=== PATIENT | female | born 1950 | race Caucasian/White ===

== ENCOUNTER → 2018-12-24 | Outpatient (CLI) | payer OTHER, SELFPAY ==
[2018-12-24 15:24] VITALS: BMI 35.8
[2018-12-25 02:30] LABS: Absolute Lymphocyte Count 2.82 X10^3/ul (0.83-4.51); Absolute Neutrophil Count 5.6 X10^3/uL (2.0-7.7); Basophil# 0.02 X10^3/uL; Basophil% 0.2 % (0-1); Eosinophil# 0.18 X10^3/uL; Eosinophils% 1.9 % (0-5); Hematocrit 40.1 % (37-47); Hemoglobin 13.2 g/dl (12.0-15.0); Lymphocyte # 2.82 X10^3/ul (4.0); Lymphocyte % 30.1 % (19-41); Mean Corp Hgb Conc 32.9 g/gl (32-36); Mean Corpuscular Hgb 27.8 pg (27.0-32.0); Mean Corpuscular Volume 84.4 fL (81-99); Monocyte# 0.68 X10^3/uL; Monocyte% 7.3 % (0-10); Neutrophil # 5.64 X10^3/uL (2.7-7.7); Neutrophil % 60.3 % (47-70); Platelet Count 201 K/mm3 (150-450); RBC Distribution Width CV 13.8 % (11.6-14.6); RBC Distribution Width SD 43.1 fl (35.1-43.9); Red Blood Count 4.75 M/mm3 (4.2-5.4); White Blood Count 9.4 K/mm3 (4.4-11.0)
[2018-12-25 02:36] LABS: POSITIVE COUNT NO; POSITIVE DIFFERENTIAL NO; POSITIVE MORPHOLOGY NO
[2018-12-25 02:44] LABS: ALB/GLOB Ratio 1.2 RATIO (0.9-2.4); AST(SGOT) 35 U/L (15-37); Alanine Aminotransfer ALT/SGPT 47 U/L (13-56); Albumin, Serum 4.1 g/dL (3.2-5.0); Alkaline Phosphatase 102 U/L (45-117); Anion Gap 5 (5-15); BUN 25 mg/dL (7-18); BUN/Creat Ratio 24.3 RATIO (10-20); Calcium,Total 9.1 mg/dL (8.5-10.1); Chloride 107 mmol/L (98-107); Cholesterol 251 mg/dL (200); Creatinine, Serum 1.03 mg/dL (0.55-1.02); EST Glomerular Filtration Rate 57 mL/min (>60); Est Glom Filt Rate - Afr Amer 69 mL/min (>60); Globulin 3.4 g/dL (2.2-4.2); Glucose 88 mg/dL (74-106); High Density Lipoprotein 42 mg/dL; Protein, Total 7.5 g/dL (6.4-8.2); Sodium Level 138 mmol/L (136-145); Triglycerides 371 mg/dL; Very Low Density Lipoprotein 74 mg/dL (5-40)
== END | disposition home or self-care (01) ==
PROVIDERS: Family Provider Nurse Practitioner; PCP Nurse Practitioner; Referring Provider Nurse Practitioner; Visit Provider Nurse Practitioner
DX: I10 Essential (primary) hypertension (principal); E78.5 Hyperlipidemia, unspecified
CPT/HCPCS: 80053; 80061; 85025

== ENCOUNTER → 2018-12-25 | Outpatient (CLI) | payer OTHER, SELFPAY ==
[2018-12-24 15:24] VITALS: BMI 35.8
[2018-12-28 16:15] LABS: ANTINUCLEAR ANTIBODIES DIRECT Negative (Negative)
== END | disposition home or self-care (01) ==
PROVIDERS: Family Provider Nurse Practitioner; PCP Nurse Practitioner; Referring Provider Nurse Practitioner; Visit Provider Nurse Practitioner
DX: M79.644 Pain in right finger(s) (principal); M79.645 Pain in left finger(s)
CPT/HCPCS: 86038; 86225; 86235

== ENCOUNTER → 2019-08-24 07:47 | Outpatient (CLI) | payer MEDICARE, OTHER, SELFPAY ==
[2019-08-11 06:11] VITALS: BMI 37.8
--- NOTE | 2019-08-24 07:48 | ECHOD_ITS ---
Reason For Study: PHTN Procedure This was a 2D Doppler, Color Flow transthoracic echocardiogram. Contrast injection was performed. Exam performed in department. Left Ventricle Normal size and thickness. The estimated ejection fraction is 65 %. Stage 1 diastolic dysfunction. No regional wall motion abnormalities noted. Right Ventricle Moderately dilated right ventricle. Normal systolic function. Atria The left atrium is moderately enlarged. Normal right atrium. Normal atrial septum. Bubble contrast study negative for right to left interatrial shunt. Mitral Valve The mitral valve is structurally normal. No prolapse or stenosis seen. Mild (1+) mitral valve insufficiency. Tricuspid Valve Normal tricuspid valve. Trivial tricuspid valve insufficiency. Right ventricular systolic pressure estimated to be 26 mmHg. Aortic Valve Normal aortic valve. Trisinus/trileaflet aortic valve. Pulmonic Valve Normal pulmonic valve. Great Vessels Normal aortic root. Normal arch. Normal inferior vena cava. Inferior vena cava collapse with sniff. Pericardium/Pleural No pericardial effusion. Medication 22 gauge I.V. with prn adaptor inserted into right arm. Performed a rapid injection of agitated mix of 9 cc saline and 1cc air to assess for atrial septal defect. MMode/2D Measurements & Calculations LVIDd: 5.2 cm IVSd: 0.94 cm LA dimension: 3.8 cm LVIDs: 2.7 cm LVPWd: 1.2 cm RVDd: 4.0 cm FS: 47.5 % LAV(MOD-bp): 84.1 ml LA A4 area: 24.5 cm2 RA A4 area: 17.0 cm2 LAV(MOD-bp) Indexed: 44.0 ml/m2 LAV(MOD-sp2): 77.8 ml LAV(MOD-sp4): 85.5 ml Time Measurements MV dec time: 0.30 sec Doppler Measurements & Calculations MV E max jacques: 87.1 cm/sec Lat Peak E' Jacques: 5.9 cm/sec Med Peak E' Jacques: 5.8 cm/sec MV A max jacques: 111.2 cm/sec E/E' lat: 14.8 E/E' med: 15.0 MV E/A: 0.78 MV V2 max: 139.6 cm/sec MV P1/2t max jacques: 121.3 cm/sec Ao V2 max: 146.7 cm/sec MV max P.8 mmHg MV P1/2t: 82.4 msec Ao max P.6 mmHg MV V2 mean: 70.3 cm/sec MV dec slope: 431.1 cm/sec2 Ao V2 mean: 92.7 cm/sec MV mean P.4 mmHg Ao mean P.0 mmHg MV V2 VTI: 43.9 cm MVA(P1/2t): 2.7 cm2 Ao V2 VTI: 29.6 cm LV V1 max: 127.4 cm/sec MR max jacques: 519.4 cm/sec PA V2 max: 85.7 cm/sec LV V1 max P.5 mmHg MR max P.9 mmHg LV V1 mean P.3 mmHg LV V1 mean: 83.6 cm/sec LV V1 VTI: 29.0 cm TR max jacques: 231.1 cm/sec TR max P.4 mmHg Interpretation Summary The estimated ejection fraction is 65 %. Stage 1 diastolic dysfunction. Moderately dilated right ventricle. The left atrium is moderately enlarged. Bubble contrast study negative for right to left interatrial shunt. Mild (1+) mitral valve insufficiency. Trivial tricuspid valve insufficiency. Right ventricular systolic pressure estimated to be 26 mmHg. There is no comparison study available. Ordering Physician: Matt Grider Referring Physician: Cecilia Garza Performed By: Spencer Macias RCS
[2019-08-24 09:10] VITALS: PULSE 100; PULSE 61; PULSE 63; PULSE 82; PULSE 83; PULSE 90; PULSE 91; PULSE 96; O2SAT 94; O2SAT 95; O2SAT 96; O2SAT 97
--- NOTE | 2019-08-26 11:00 | WT_ITS ---
PSN 6 Minute Walk Test - 6 Minute Walk Test 6 Minute Walk Test: 6 Minute Walk Test PSN:6-Minute Walk Test Start: 08/24/19 09:10 Freq: Status: Active Protocol: [id number] Document 08/24/19 09:10 [facility] (Rec: 08/24/19 09:16 [facility] [id number]) 6 Minute Walk Test Date Performed 08/24/19 Time Performed 09:00 Height 5 ft 2 in Weight: 200 lb Weight in Pounds 200.[address]: Matt Grider Assistive device used: None Pre-test Oxygen Delivery Method Room Air Pulse Ox (%) 97 Pulse Rate (60-100 beats/min) 61 Dyspnea Priscila Scale (0-10) 0.5 Exertion Priscila Scale (6-20) 6 1st minute Oxygen Delivery Method Room Air Pulse Ox (%) 95 Pulse Rate (60-100 beats/min) 82 2nd minute Oxygen Delivery Method Room Air Pulse Ox (%) 95 Pulse Rate (60-100 beats/min) 83 3rd minute Oxygen Delivery Method Room Air Pulse Ox (%) 95 Pulse Rate (60-100 beats/min) 91 4th minute Oxygen Delivery Method Room Air Pulse Ox (%) 95 Pulse Rate (60-100 beats/min) 96 5th minute Oxygen Delivery Method Room Air Pulse Ox (%) 94 Pulse Rate (60-100 beats/min) 100 6th minute Oxygen Delivery Method Room Air Pulse Ox (%) 95 Pulse Rate (60-100 beats/min) 90 Dyspnea Priscila Scale (0-10) 1 Exertion Priscila Scale (6-20) 8 Post-test Oxygen Delivery Method Room Air Pulse Ox (%) 96 Pulse Rate (60-100 beats/min) 63 Full Laps Walked 18 Partial Lap, Number of Tiles Walked 0 Total Distance Walked (ft) 1062 - Interpretation Interpretation: The patient ambulated 1062 feet over the course of 6 minutes beginning on room air without assistive devices or breaks. Pretesting oxygen saturation was noted to be 97% on room air. With ambulation, the rodolfo oxygen saturation was 94%. There was no significant exertional oxygen desaturation. - Recommendations Recommendations: There is no indication for the use of supplemental oxygen at this time.
== END ==
PROVIDERS: PCP Nurse Practitioner; Referring Provider Internal Medicine Critical Care Medicine; Visit Provider Internal Medicine Critical Care Medicine
DX: R06.02 Shortness of breath (principal); G47.33 Obstructive sleep apnea (adult) (pediatric)
CPT/HCPCS: 93306; 94618; A4216

== ENCOUNTER → 2019-08-25 08:44 | Outpatient (CLI) | payer MEDICARE, OTHER, SELFPAY ==
[2019-08-11 06:11] VITALS: BMI 37.8
--- NOTE | 2019-08-26 11:09 | PFT ---
INTRODUCTION: The patient is a 69-year-old female that presents for pulmonary function studies secondary to a diagnosis of shortness of breath. Respiratory therapy reports good patient effort. Bronchodilators were used during testing. INTERPRETATION: Forced expiration spirometry demonstrates no evidence of a large airways obstructive ventilatory defect. There was no significant response to aerosolized bronchodilators, based upon strict ATS criteria. There is some subtle stigmata of potential small airways disease. Body plethysmography was performed and reveals an elevated RV to 142% of predicted. Diffusing capacity by single breath CO is within normal limits at 76% of predicted. IMPRESSION: Subtle stigmata of small airways disease with evidence of air trapping.
== END ==
PROVIDERS: PCP Nurse Practitioner; Referring Provider Internal Medicine Critical Care Medicine; Visit Provider Internal Medicine Critical Care Medicine
DX: R06.02 Shortness of breath (principal)
CPT/HCPCS: 94060; 94726; 94729

== ENCOUNTER → 2020-01-04 | Outpatient (CLI) | payer MEDICARE, OTHER, SELFPAY ==
[2020-01-04 15:26] VITALS: BMI 36.7
[2020-01-04 21:05] LABS: Absolute Lymphocyte Count 2.44 X10^3/uL (0.83-4.51); Absolute Neutrophil Count 4.5 X10^3/uL (2.0-7.7); Basophil# 0.05 X10^3/uL; Basophil% 0.6 % (0-1); Eosinophil# 0.25 X10^3/uL; Eosinophils% 3.2 % (0-5); Hematocrit 39.1 % (37-47); Hemoglobin 12.7 g/dL (12.0-15.0); Lymphocyte # 2.44 X10^3/ul (4.0); Lymphocyte % 31.1 % (19-41); Mean Corp Hgb Conc 32.5 g/dL (32-36); Mean Corpuscular Hgb 28.1 pg (27.0-32.0); Mean Corpuscular Volume 86.5 fL (81-99); Mean Platelet Vol. 10.1 fl (6.2-12.0); Monocyte# 0.56 X10^3/uL; Monocyte% 7.1 % (0-10); NRBC Flagged by Analyzer 0 % (0-5); Neutrophil # 4.52 X10^3/uL (2.7-7.7); Neutrophil % 57.6 % (47-70); Platelet Count 189 K/mm3 (150-450); RBC Distribution Width CV 13.4 % (11.6-14.6); RBC Distribution Width SD 42.1 fl (35.1-43.9); Red Blood Count 4.52 M/mm3 (4.2-5.4); White Blood Count 7.9 K/mm3 (4.4-11.0)
[2020-01-04 21:31] LABS: ALB/GLOB Ratio 1.1 RATIO (0.9-2.4); AST(SGOT) 26 U/L (15-37); Alanine Aminotransfer ALT/SGPT 45 U/L (13-56); Albumin, Serum 3.9 g/dL (3.2-5.0); Alkaline Phosphatase 81 U/L (45-117); Anion Gap 9 (5-15); BUN 19 mg/dL (7-18); BUN/Creat Ratio 20.4 RATIO (10-20); Calcium,Total 9.1 mg/dL (8.5-10.1); Chloride 108 mmol/L (98-107); Cholesterol 230 mg/dL (200); Creatinine, Serum 0.93 mg/dL (0.55-1.02); EST Glomerular Filtration Rate 63 mL/min (>60); Est Glom Filt Rate - Afr Amer 77 mL/min (>60); Globulin 3.5 g/dL (2.2-4.2); Glucose 87 mg/dL (74-106); High Density Lipoprotein 46 mg/dL; Potassium 3.6 mmol/L (3.5-5.1); Protein, Total 7.4 g/dL (6.4-8.2); Sodium Level 140 mmol/L (136-145); Triglycerides 310 mg/dL; Uric Acid 5.5 mg/dL (2.6-6.0); Very Low Density Lipoprotein 62 mg/dL (5-40)
[2020-01-06 21:14] LABS: ANTINUCLEAR ANTIBODIES DIRECT Negative (Negative)
== END | disposition home or self-care (01) ==
PROVIDERS: PCP Nurse Practitioner; Referring Provider Nurse Practitioner; Visit Provider Nurse Practitioner
DX: M25.541 Pain in joints of right hand (principal); M25.542 Pain in joints of left hand; J45.909 Unspecified asthma, uncomplicated; I10 Essential (primary) hypertension; E78.5 Hyperlipidemia, unspecified
CPT/HCPCS: 80053; 80061; 84550; 85025; 86038; 86225; 86235

== ENCOUNTER → 2020-05-15 10:04 | Outpatient (CLI) | payer MEDICARE, OTHER, SELFPAY ==
[2020-05-14 19:55] VITALS: BMI 34.5
== END ==
PROVIDERS: PCP Nurse Practitioner; Referring Provider Nurse Practitioner; Visit Provider Nurse Practitioner
DX: Z20.828 Contact with and (suspected) exposure to other viral communicable diseases (principal)
CPT/HCPCS: 87635; C9803; U0003

== ENCOUNTER → 2020-09-12 | Outpatient (CLI) | payer MEDICARE, OTHER, SELFPAY ==
[2020-09-10 16:50] VITALS: BMI 35.3
[2020-09-12 22:43] LABS: Basophil# 0.03 X10^3/uL; Basophil% 0.4 % (0-1); Eosinophil# 0.13 X10^3/uL; Eosinophils% 1.6 % (0-5); Hematocrit 39.8 % (37-47); Hemoglobin 12.8 g/dL (12.0-15.0); Lymphocyte % 15.7 % (19-41); Mean Corp Hgb Conc 32.2 g/dL (32-36); Mean Corpuscular Hgb 26.9 pg (27.0-32.0); Mean Corpuscular Volume 83.8 fL (81-99); Monocyte# 0.67 X10^3/uL; Monocyte% 8.1 % (0-10); NRBC Flagged by Analyzer 0 % (0-5); Neutrophil # 5.98 X10^3/uL (2.7-7.7); Platelet Count 350 K/mm3 (150-450); RBC Distribution Width CV 13.6 % (11.6-14.6); RBC Distribution Width SD 41.7 fl (35.1-43.9); Red Blood Count 4.75 M/mm3 (4.2-5.4); White Blood Count 8.3 K/mm3 (4.4-11.0)
[2020-09-12 22:49] LABS: ALB/GLOB Ratio 0.7 RATIO (0.9-2.4); AST(SGOT) 22 U/L (15-37); Alanine Aminotransfer ALT/SGPT 33 U/L (13-56); Albumin, Serum 2.8 g/dL (3.2-5.0); Alkaline Phosphatase 74 U/L (45-117); Anion Gap 7 (5-15); BUN 13 mg/dL (7-18); BUN/Creat Ratio 12.6 RATIO (10-20); Chloride 104 mmol/L (98-107); Creatinine, Serum 1.03 mg/dL (0.55-1.02); EST Glomerular Filtration Rate 56 mL/min (>60); Est Glom Filt Rate - Afr Amer 68 mL/min (>60); Globulin 4.2 g/dL (2.2-4.2); Glucose 122 mg/dL (74-106); Potassium 3.5 mmol/L (3.5-5.1); Sodium Level 138 mmol/L (136-145)
[2020-09-12 22:52] LABS: D-Dimer Quantitative (DVT/PE) 1.64 FEU/ug/m (0.27-0.49)
== END | disposition home or self-care (01) ==
PROVIDERS: PCP Nurse Practitioner; Visit Provider Nurse Practitioner
DX: I10 Essential (primary) hypertension (principal); R06.02 Shortness of breath; R09.02 Hypoxemia
CPT/HCPCS: 80053; 85025; 85379; 86141

== ENCOUNTER 2020-09-13 09:28 | Inpatient (IN) | payer MEDICARE, OTHER, SELFPAY ==
[2020-09-10 16:50] VITALS: BMI 35.3
[2020-09-13] VITALS (18 sets, daily range): BP systolic 156–235; BP diastolic 69–98; PULSE 62–86; RESP 16–19; TEMP 36.4–37.1; O2SAT 94–98; BMI 32.8; BMI 33.9
--- NOTE | 2020-09-13 09:53 | EKG12_ITS ---
Test Reason : Blood Pressure : / mmHG Vent. Rate : 067 BPM Atrial Rate : 067 BPM P-R Int : 136 ms QRS Dur : 082 ms QT Int : 402 ms P-R-T Axes : 045 -29 042 degrees QTc Int : 424 ms Normal sinus rhythm Septal infarct , age undetermined Abnormal ECG Confirmed by PADMINI WERNER, APOORVA ([id number]), web content editor WILLIAM DE LA TORRE ([id number]) on 09/17/2020 10:24:37 AM Referred By: JAMI Confirmed By:APOORVA WASHINGTON MD
--- NOTE | 2020-09-13 09:53 | CT_ITS ---
STUDY: CTA CHEST REASON FOR EXAM: Female, 70 years old. Pulmonary embolism RADIATION DOSAGE (If Supplied By Facility): CTDIvol = ( 12.45 ) mGy, DLP = ( 468.80 ) mGycm TECHNIQUE: The examination was performed with the intravenous administration of IV 100mL Isovue-370. Post-processing of the angiographic images was performed, with multiplanar reformation and 3D reconstruction. Individualized dose optimization techniques were used for this CT. COMPARISON: None. FINDINGS: Normal enhancement of the main pulmonary artery and right and left pulmonary arteries. Normal enhancement of the bilateral peripheral pulmonary arteries. There is no demonstrated pulmonary embolism. Normal thoracic aorta and visualized great vessels. There is no demonstrated aortic dissection. There are calcifications of the coronary arteries. Normal mediastinum. Normal hilar regions. Normal visualized trachea and bronchi. The lungs are well expanded. There is evidence of multiple areas of groundglass appearance involving both upper and lower lobes and the preferential peripheral distribution. This is worse in the lower lobes. Pneumonitis associated with the Covid 19 should be ruled out. Gross evidence of scarring at the lung bases. Normal pleura. Normal chest wall structures. There are degenerative changes of thoracic spine. Calcified splenic granulomas. CT/CTA Chest W/WO Contrast IMPRESSION: Multiple areas of groundglass appearance in both lungs superimposed on chronic basilar scarring. Findings are suggestive of pneumonitis associated with Covid19. Electronically Signed: Sanjeev Moran MD at 12:15 EDT , Service support ,
--- NOTE | 2020-09-13 09:57 | ED.VISSUMM ---
- ER Visit Summary Date of Service: 09/13/20 Chief Complaint: Shortness of breath, elevated D-dimer History of Present Illness: The patient is a 70 F who presents with shortness of breath that has been getting worse over the past 2 weeks. Patient states she was diagnosed with COVID-19 earlier this month. Patient states that she has been using her inhaler with minimal improvement. Patient states she feels like her breathing is labored. Patient denies any cough. Patient states she has been having fevers up to 101 at home but has been afebrile for the past couple days. Patient states she had a negative COVID-19 back in April but has had a positive COVID-19 test 2 weeks ago. Patient states her breathing is worse with any movement or exertion. Patient saw her primary care physician yesterday who did labs. The D-dimer was elevated and the patient was referred to the emergency department for further evaluation. Physical Examination: Vital signs are stable except for an elevated blood pressure of 180/93. Patient is afebrile. Patient is in no acute distress. Oral mucosa is pink and moist. Neck is supple. Trachea is midline. There is no JVD noted. Heart was regular rate and rhythm. Lungs are clear and equal bilaterally. Abdomen is soft. Bowel sounds are normal. There is no tenderness. There is no rebound or guarding noted. Skin is warm dry. Cranial nerves II through XII are intact. There are no focal motor or sensory deficits noted. Extremities are intact. There is no calf tenderness or edema. Test Results: EKG was obtained. On my interpretation, there is a normal sinus rhythm with a rate of 67. There are no acute ST or T wave changes. TX interval, QRS interval, and QTc interval were within normal limits. There is some left axis deviation. CBC was normal. Comprehensive metabolic profile showed a mild hypokalemia of 3.1. Troponin was normal. BNP was normal. Lactate was elevated at 3.3. Portable 1 view chest x-ray was obtained. On my interpretation, lung garcia showed mild congestive heart failure. There is normal cardiac silhouette. Bony thorax is normal. Radiologist also interpreted the x-ray and agrees. CTA of the chest was obtained. There is no evidence of pulmonary embolism or aortic dissection. There are multiple areas of groundglass appearance consistent with COVID-19. Because the COVID-19 antigen was negative and the patient is having symptoms of COVID-19, a COVID-19 PCR was ordered and is pending. Emergency Department Course and Treatment: She was given a dose of hydralazine here for her blood pressure. Patient was given a dose of Decadron here. Patient is still feeling weak on reevaluation. Patient was advised of her findings. Case was discussed with the hospitalist. He recommended giving the patient 1 L of normal saline. He will admit the patient to his service to the Covid unit. Patient and family understood and were agreeable with the plan. All questions were answered. Disposition: Admit to hospital Impression: 1. COVID-19 pneumonia 2. General weakness 3. Hypokalemia This note was generated with [employer] dictation software. It may contain incorrect words, spelling, and punctuation that were not noted in review of the chart prior to signing ED Disposition - Plan for ED Patient: Disposition: Acute Care Hospital [facility] Diagnosis: Pneumonia due to COVID-19 virus Referrals: Cecilia Garza COTTON MACHINE OPERATOR, COTTON MACHINE OPERATOR-C [Primary Care Provider] -
[2020-09-13] MEDS: hydrALAZINE 20 MG/ML Vial 5 MG IV (10:35)
[2020-09-13 10:36] LABS: Absolute Lymphocyte Count 0.94 X10^3/uL (0.83-4.51); Absolute Neutrophil Count 5.8 X10^3/uL (2.0-7.7); Basophil# 0.01 X10^3/uL; Basophil% 0.1 % (0-1); Eosinophil# 0.01 X10^3/uL; Eosinophils% 0.1 % (0-5); Hematocrit 40.2 % (37-47); Hemoglobin 12.9 g/dL (12.0-15.0); Lymphocyte # 0.94 X10^3/ul (4.0); Lymphocyte % 12.3 % (19-41); Mean Corp Hgb Conc 32.1 g/dL (32-36); Mean Corpuscular Hgb 26.5 pg (27.0-32.0); Mean Corpuscular Volume 82.7 fL (81-99); Mean Platelet Vol. 8.7 fl (6.2-12.0); Monocyte# 0.62 X10^3/uL; Monocyte% 8.1 % (0-10); NRBC Flagged by Analyzer 0 % (0-5); Neutrophil # 5.83 X10^3/uL (2.7-7.7); Neutrophil % 76.4 % (47-70); Platelet Count 355 K/mm3 (150-450); RBC Distribution Width CV 13.7 % (11.6-14.6); Red Blood Count 4.86 M/mm3 (4.2-5.4); White Blood Count 7.6 K/mm3 (4.4-11.0)
--- NOTE | 2020-09-13 10:55 | RAD_ITS ---
STUDY: X-RAY CHEST REASON FOR EXAM: Female, 70 years old. Cough TECHNIQUE: Single AP portable view of the chest. COMPARISON: None. FINDINGS: EKG electrodes are seen. There is evidence of vascular congestion with bibasilar atelectasis and/or infiltrates worse at the left lung base. There is no demonstrated pleural abnormality. Normal size heart. Normal mediastinum and lisa. Normal visualized pulmonary arteries. Normal visualized aortic arch and descending thoracic aorta. Normal visualized thoracic spine. There is degenerative osteoarthritis of the bilateral shoulders. There is no demonstrated abnormality of the visualized soft tissue structures of the upper abdomen. RAD/Chest 1 View (Portable) IMPRESSION: Mild degree of CHF with bibasilar atelectasis and/or infiltrates. Electronically Signed: Sanjeev Moran MD at 11:19 EDT , Service support ,
[2020-09-13 11:24] LABS: Lactic Acid 3.3 mmol/L (0.4-1.9)
[2020-09-13 11:39] LABS: ALB/GLOB Ratio 0.6 RATIO (0.9-2.4); AST(SGOT) 15 U/L (15-37); Alanine Aminotransfer ALT/SGPT 28 U/L (13-56); Albumin, Serum 2.6 g/dL (3.2-5.0); Alkaline Phosphatase 69 U/L (45-117); Anion Gap 8 (5-15); BUN 18 mg/dL (7-18); BUN/Creat Ratio 20.5 RATIO (10-20); Calcium,Total 8.5 mg/dL (8.5-10.1); Chloride 105 mmol/L (98-107); Creatinine, Serum 0.88 mg/dL (0.55-1.02); EST Glomerular Filtration Rate 68 mL/min (>60); Est Glom Filt Rate - Afr Amer 82 mL/min (>60); Estimated Creatinine Clearance 49.91 ml/min; Globulin 4.2 g/dL (2.2-4.2); Glucose 116 mg/dL (74-106); Potassium 3.1 mmol/L (3.5-5.1); Protein, Total 6.8 g/dL (6.4-8.2); Sodium Level 139 mmol/L (136-145)
[2020-09-13 12:35] LABS: BNP,B-Type NATRIURETIC PEPTIDE 61.5 pg/mL (0-100)
[2020-09-13 14:48] LABS: Reflex Lactate? Y
[2020-09-13] MEDS: dexAMETHasone 4 MG/ML Vial 6 MG IV (15:08)
[2020-09-13] MEDS: 0.9% Normal Saline 1,000 ML 999 ML IV (15:08)
[2020-09-13] MEDS: Potassium Chloride Oral Tablet 20 MEQ 40 MEQ PO ×2 (15:09→17:35)
--- NOTE | 2020-09-13 15:22 | HP.PCM_ITS ---
Problem List (1) Pneumonia due to COVID-19 virus Status: Acute (2) Hypoxemia Status: Acute (3) DIABETES TYPE 2 Status: Chronic (4) IBS (irritable bowel syndrome) Status: Chronic (5) Hypertension Status: Chronic Qualifiers: (6) GERD (gastroesophageal reflux disease) Status: Chronic (7) Hyperlipemia Status: Chronic Qualifiers: History of Present Illness Date of Admission: 09/13/20 Chief Complaint: Shortness of breath, weakness, elevated D-dimer. The patient is a 70 year old F with past medical history as mentioned above presented to the emergency room because of shortness of breath, weakness and elevated D-dimer. Patient tested positive for COVID-19 on August 27, 2020. Since that time, she has been having symptoms of progressively slowly increasing sh ortness of breath, first was on moderate exertion and then even at rest, associated with dry cough as well as profound weakness and also reported distorted smell and nausea. She reported associated fever at home as well. She saw her PCP yesterday, had blood work done and she was found to have elevated D- dimer and she was referred to the ED today for evaluation. In the emergency department, her blood pressure was elevated, was afebrile, not tachycardic, not tachypneic and pulse ox was 96% on 2 L. Her routine blood work was remarkable for mild hypokalemia, otherwise normal. LFT was unremarkable. Lactic acid was 3.3. EKG revealed normal sinus rhythm without evidence of acute ischemic changes or cardiac arrhythmias. Troponin was negative. Chest x-ray showed bilateral basilar infiltrate, no CHF. CTA chest done and showed no PE or dissection, revealed multiple areas of groundglass appearance of both lungs. She is being admitted for acute bilateral COVID-19 pneumonia with hypoxia and she was found to have lactic acidosis without evidence of sepsis or severe sepsis. Past Medical History Past Medical History (Chronic Problems): Chronic Problems (Last Updated 09/13/20 @ 15:[address] John Back MD) Asthma (Chronic) DIABETES TYPE 2 (Chronic) IBS (irritable bowel syndrome) (Chronic) Sleep apnea (Chronic) Hypertension (Chronic) GERD (gastroesophageal reflux disease) (Chronic) Hyperlipemia (Chronic) Medical History: Medical History (Last Updated 09/13/20 @ 15:[address] John Back MD) DIABETES TYPE 2 (Chronic) IBS (irritable bowel syndrome) (Chronic) K58.9 Sleep apnea (Chronic) G47.30 Loose total arthroplasty of both knees (Inactive) T84.032A, T84.033A Spinal stenosis (Inactive) M48.00 Allergies gemfibrozil Allergy (Severe, Verified 09/13/20 09:29) vomiting and diarrhea amoxicillin Allergy (Verified 09/13/20 09:29) rash donepezil Adverse Reaction (Severe, Verified 09/13/20 09:29) dizzy Home Medications: Ambulatory Orders Medication Instructions Recorded albuterol sulfate 2.5 mg INHALATION Q4H PRN #90 ml 09/20/19 albuterol sulfate 90 mcg/actuation 2 puff INHALATION Q4H PRN #18 g 07/19/20 aerosol inhaler promethazine 12.5 mg tablet 12.5 mg PO Q4H PRN #45 tab 09/11/20 budesonide 160 mcg-glycopyr 9 2 inh INHALATION BID 09/12/20 mcg-formot 4.8 mcg/actuation HFA inhaler Ascorbic Acid [C-1000] 1,000 mg PO DAILY 09/13/20 Fluvoxamine Maleate 50 mg PO BID 09/13/20 Meloxicam 15 mg PO QDAY 09/13/20 Metformin HCl [Glucophage] 500 mg PO DAILY 09/13/20 Omeprazole 40 mg PO DAILY 09/13/20 Zinc Gluconate [Zinc] 50 mg PO DAILY 09/13/20 Surgical History: Surgical History (Last Updated 09/13/20 @ 15:[address] John Back MD) H/O tubal ligation (Inactive) Z98.51 History of bunionectomy of both great toes (Inactive) Z98.890 Surgical History: total knee arthroplasty, - - Laminectomy. 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 Denies: Chills Eyes: Denies: Blurred vision, Double vision, Drainage, Redness HEENT: Reports: Sinus Congestion. Denies: Difficulty Hearing, Dysphasia, Ear Pain, Eye Pain, Nasal Congestion, Sore Throat Cardiovascular: Denies: Chest Pain, Chest Pressure, Chest Tightness, Heaviness, Light Headedness, Palpitations, Syncope Respiratory: Reports: Cough, Shortness of Breath. Denies: Sputum production, Wheezing Gastrointestinal: Reports: Nausea. Denies: Abdominal Pain, Constipation, Diarrhea, Vomiting Genitourinary: Denies: Dysuria, Frequency, Hematuria Musculoskeletal: Denies: Arm Pain, Back Pain, Foot Pain Skin: Denies: Dryness, Rash Neurological: Denies: Balance problems, Double vision, Change in Speech, Slurred speech, Confusion, Headaches, Incoordination Psychiatric: Denies: Anxiety, Depression Endocrine: Denies: Change in Body Habitus, Polydipsia, Polyuria VTE Information - Inpt Only VTE Present on Admission: No VTE Mechan Device Prophylaxis: None VTE Pharm Prophylaxis ordered?: Yes Patient Problems: Active and Suspected Problems (Last Updated 09/13/20 @ 15:[address] John Back MD) Pneumonia due to COVID-19 virus (Acute) Hypoxemia (Acute) - Physical Exam Vitals/I&O's: Vital Signs Temp Pulse Resp BP Pulse Ox 98.4 F 73 19 H 176/87 H 94 09/13/20 15:00 09/13/20 15:00 09/13/20 15:00 09/13/20 15:00 09/13/20 15:00 Oxygen Flow Rate (L/min) 2 Oxygen Delivery Method Nasal Cannula Weight: 185 lb Body Mass Index (BMI) 32.8 General: Alert, Oriented x3, Cooperative, - - Minimally short of breath. HEENT: Atraumatic, PERRLA, EOMI, Normocephalic Oral: Moist Mucosa, No Gingival or Mucosal Lesions/ Ulcerations Neck: Supple, No JVD, Negative Carotid Bruits, Trachea Midline, Thyroid Normal Size and Texture Lungs: Clear to auscultation, No rhonchi, No wheeze, No rales, Diminished Cardiovascular: Regular rate, Regular Rhythm, Normal S1, Normal S2, PMI Normal Abdomen: Bowel Sounds Present, Soft, Non Tender, Non-Distended, No Hepato- splenomegaly, Obese Extremities: No clubbing, No cyanosis, No edema Skin: No rashes, No breakdown Lymphatic: No Cervical, Supraclavicular, or Inguinal Adenopathy Neurological: Cranial nerves II-XII grossly intact, Motor Exam 5/5 strength throughout Psych/Mental Status: Normal Affect, Appropriate, Alert and oriented to time, place, person, mood and affect Microbiology Past 72 Hours 09/13/20 10:10 Mucosa - Nose SARS-CoV-2 Antigen (Rapid) - Final Laboratory Results 09/13/20 10:10: Sodium Cancelled, Potassium Cancelled, Chloride Cancelled, Carbon Dioxide Cancelled, Anion Gap Cancelled, BUN Cancelled, Creatinine Cancelled, Estim Creat Clear Calc Cancelled, Est GFR (MDRD) Af Amer Cancelled, Est GFR (MDRD) Non-Af Cancelled, BUN/Creatinine Ratio Cancelled, Glucose Cancelled, Calcium Cancelled, Total Bilirubin Cancelled, AST Cancelled, ALT Cancelled, Alkaline Phosphatase Cancelled, Troponin I Cancelled, Total Protein Cancelled, Albumin Cancelled, Globulin Cancelled, Albumin/Globulin Ratio Cancelled 09/13/20 10:10: WBC 7.6, RBC 4.86, Hgb 12.9, Hct 40.2, MCV 82.7, MCH 26.5 L, MCHC 32.1, RDW Std Deviation 41.0, RDW Coeff of Panda 13.7, Plt Count 355, MPV 8.7, Immature Gran % (Auto) 3.000 H, Neut % (Auto) 76.4 H, Lymph % (Auto) 12.3 L , [place] % (Auto) 8.1, Eos % (Auto) 0.1, Baso % (Auto) 0.1, Absolute Neuts (auto) 5.8, Absolute Lymphs (auto) 0.94, Nucleated RBC % 0 09/13/20 10:10: Lactic Acid Cancelled 09/13/20 10:10: B-Natriuretic Peptide 61.5 09/13/20 10:44: Lactic Acid 3.3 H* 09/13/20 11:16: Sodium 139, Potassium 3.1 L, Chloride 105, Carbon Dioxide 26.0, Anion Gap 8, BUN 18, Creatinine 0.88, Estim Creat Clear Calc 49.91, Est GFR (MDRD) Af Amer 82, Est GFR (MDRD) Non-Af 68, BUN/Creatinine Ratio 20.5 H, Glucose 116 H, Calcium 8.5, Total Bilirubin 0.30, AST 15, ALT 28, Alkaline Phosphatase 69, Troponin I 0.037, Total Protein 6.8, Albumin 2.6 L, Globulin 4.2, Albumin/Globulin Ratio 0.6 L 09/13/20 13:05: COVID-19 ([place]) Pending Clinical Impression(s) from Imaging Studies Chest CTA 09/13/20 09:53 IMPRESSION: Multiple areas of groundglass appearance in both lungs superimposed on chronic basilar scarring. Findings are suggestive of pneumonitis associated with Covid19. Electronically Signed: Sanjeev Moran MD at 12:15 EDT , Service support , Chest X-Ray 09/13/20 10:55 IMPRESSION: Mild degree of CHF with bibasilar atelectasis and/or infiltrates. Electronically Signed: Sanjeev Moran MD at 11:19 EDT , Service support , Current Medications Sodium Chloride () 1,000 mls @ 999 mls/hr IV .Q1H1M ONE Stop: 09/13/20 15:47 Last Admin: 09/13/20 15:08 Dose: 999 mls/hr Documented by: Iopamidol (Contrast Allergy Safety Check) 0 ml IV X1 ESTRADA Last Admin: 09/13/20 11:21 Dose: Not Given Documented by: Assessment/Plan All Active Problems (Last Updated 09/13/20 @ 15:[address] John Back MD) Pneumonia due to COVID-19 virus (Acute) Hypoxemia (Acute) This is a 70 years old female patient presented to the emergency room because of shortness of breath, weakness and elevated D-dimer, she was tested positive for COVID-19 on August 27, 2020, found to have bilateral groundglass opacities on CTA chest consistent with bilateral COVID-19 pneumonia with hypoxia and also found to have lactic acidosis. #1 acute bilateral COVID-19 pneumonia/hypoxia: Patient tested positive for COVID-19 on August 27, 2020. Today, COVID-19 antigen is negative. COVID-19 PCR is pending. Chest x-ray and CTA chest reviewed. EKG was unremarkable. Troponin and BNP was unremarkable. Plan: Admit to [facility] COVID19 floor, isolation precautions, start p.o. Decadron, IV in the severe, continue Pulmicort twice daily, albuterol inhaler, infectious disease consult, subcu Lovenox twice daily, repeat CBC and CMP tomorrow morning, check pro time and INR, PT OT evaluation and treatment. #2 lactic acidosis: This is probably because of hypoxemia. No evidence of sepsis or severe sepsis. Patient was afebrile, not tachycardic, not tachypneic and she had no leukocytosis. Plan: Blood culture, gentle IV fluids for hydration, repeat lactic acid in 3 hours. #3 type 2 diabetes mellitus: ADA diet, Accu-Cheks, insulin sliding scale, hold Metformin for now. #4 GERD: Continue PPI. #5 asthma/COPD: Currently, she is on oxygen at 2 L. Plan for Pulmicort twice daily, albuterol inhaler as needed, incentive spirometer. #6 CODE STATUS: Full code. #7 DVT prophylaxis: Subcu Lovenox twice daily. This note was generated with [employer] dictation software. It may contain incorrect words, spelling, and punctuation that were not noted in checking the note before signing. Inpatient E&M: [id number] Init Hosp L3
--- NOTE | 2020-09-13 15:27 | ED.RN ---
called patients spouse and updated him on patients admission and room number.
[2020-09-13 17:01] LABS: Prothrombin Time (Protime)PT. 12.9 SECONDS (11.7-14.9)
[2020-09-13] MEDS: hydrALAZINE 20 MG/ML Vial 10 MG IV (17:34)
[2020-09-13] MEDS: 0.9% Saline Lock 10 ML Syringe IV ×2 (17:34→20:09)
[2020-09-13 17:57] LABS: Lactic Acid 2.8 mmol/L (0.4-1.9)
[2020-09-13] MEDS: cloNIDine HCl 0.1 MG Tablet PO (20:03)
[2020-09-13] MEDS: CLARIFY ORDER NOTE (20:03)
[2020-09-13 20:36] LABS: Bedside Glucose 141 mg/dL (70-110)
[2020-09-13] MEDS: fluvoxaMINE Maleate 50 MG Tablet PO (22:18)
[2020-09-13] MEDS: Enoxaparin 30 MG/0.3 ML Syringe SC (22:18)
[2020-09-13 22:46] LABS: Bedside Glucose 157 mg/dL (70-110)
--- NOTE | 2020-09-13 23:45 | NURSING ---
At HS, pt informed that fingerstick blood sugar was just high enough to get her 1 unit of insulin for sliding scale. Pt adamantly refused, stating I watched my dad get insulin and it just tore him up. When asked to explain what she meant by tore him up pt simply responded with, I'm not taking insulin.
[2020-09-14] VITALS (13 sets, daily range): BP systolic 136–165; BP diastolic 61–87; PULSE 55–69; RESP 15–19; TEMP 36.6–36.9; O2SAT 94–96
[2020-09-14 06:09] LABS: Absolute Lymphocyte Count 1.11 X10^3/uL (0.83-4.51); Absolute Neutrophil Count 6.2 X10^3/uL (2.0-7.7); Basophil# 0.02 X10^3/uL; Basophil% 0.2 % (0-1); Eosinophil# 0.02 X10^3/uL; Eosinophils% 0.2 % (0-5); Hemoglobin 12.2 g/dL (12.0-15.0); Lymphocyte # 1.11 X10^3/ul (4.0); Lymphocyte % 13.7 % (19-41); Mean Corpuscular Hgb 27.3 pg (27.0-32.0); Mean Corpuscular Volume 82.8 fL (81-99); Mean Platelet Vol. 8.6 fl (6.2-12.0); Monocyte# 0.61 X10^3/uL; Monocyte% 7.5 % (0-10); NRBC Flagged by Analyzer 0 % (0-5); Neutrophil % 76.4 % (47-70); Platelet Count 297 K/mm3 (150-450); RBC Distribution Width CV 13.8 % (11.6-14.6); RBC Distribution Width SD 41.3 fl (35.1-43.9); Red Blood Count 4.47 M/mm3 (4.2-5.4); White Blood Count 8.1 K/mm3 (4.4-11.0)
[2020-09-14 06:26] LABS: ALB/GLOB Ratio 0.7 RATIO (0.9-2.4); AST(SGOT) 15 U/L (15-37); Alanine Aminotransfer ALT/SGPT 29 U/L (13-56); Albumin, Serum 2.6 g/dL (3.2-5.0); Alkaline Phosphatase 64 U/L (45-117); Anion Gap 8 (5-15); BUN 19 mg/dL (7-18); BUN/Creat Ratio 23.9 RATIO (10-20); Calcium,Total 8.5 mg/dL (8.5-10.1); Chloride 107 mmol/L (98-107); Creatinine, Serum 0.79 mg/dL (0.55-1.02); EST Glomerular Filtration Rate 76 mL/min (>60); Est Glom Filt Rate - Afr Amer 92 mL/min (>60); Estimated Creatinine Clearance 43.92 ml/min; Globulin 3.9 g/dL (2.2-4.2); Glucose 131 mg/dL (74-106); Potassium 4.1 mmol/L (3.5-5.1); Protein, Total 6.5 g/dL (6.4-8.2); Sodium Level 140 mmol/L (136-145)
[2020-09-14] MEDS: Meloxicam 15 MG Tablet PO (08:41)
[2020-09-14] MEDS: dexAMETHasone 4 MG Tablet 6 MG PO (08:41)
[2020-09-14] MEDS: Lisinopril 20 MG Tablet PO ×2 (08:41→08:42)
[2020-09-14] MEDS: fluvoxaMINE Maleate 50 MG Tablet PO ×2 (08:42→20:55)
[2020-09-14] MEDS: Pantoprazole Sodium 40 MG Tablet PO (08:42)
[2020-09-14] MEDS: Enoxaparin 30 MG/0.3 ML Syringe SC ×2 (08:42→20:55)
--- NOTE | 2020-09-14 09:30 | PN_ITS ---
Patient Problems: Active and Suspected Problems (Last Updated 09/13/20 @ 15:[address] John Back MD) Pneumonia due to COVID-19 virus (Acute) Hypoxemia (Acute) Subjective: Chief complaint: Follow-up after admission for acute bilateral COVID-19 pneumonia, hypoxia and newly diagnosed hypertension. Patient seen and examined. No acute events overnight. Today, she is feeling better, shortness of breath improved, has been on room air. Overnight, blood pressure was high elevated, she received IV Thorazine. She was started on Norvasc and lisinopril. This morning, she is afebrile, blood pressure still on the higher side but improved, pulse ox is 94% on room air. - Physical Exam Vitals/I&O's: Vital Signs Temp Pulse Resp BP Pulse Ox 97.9 F 60 15 165/87 H 94 09/14/20 08:45 09/14/20 08:45 09/14/20 08:45 09/14/20 08:45 09/14/20 08:45 Oxygen Flow Rate (L/min) 2 Oxygen Delivery Method Room Air Weight: 191 lb 5.78 oz Body Mass Index (BMI) 33.9 Intake and Output for Last 24 Hours 09/12/20 09/13/20 09/14/20 23:59 23:59 23:59 Intake Total 1750 / 1750 Balance 1750 / 1750 General: Alert, Oriented x3, Cooperative, No apparent distress HEENT: Atraumatic, PERRLA, EOMI, Normocephalic Oral: Moist Mucosa, No Gingival or Mucosal Lesions/ Ulcerations Neck: Supple, No JVD, Negative Carotid Bruits, Trachea Midline, Thyroid Normal Size and Texture Lungs: Clear to auscultation, No rhonchi, No wheeze, No rales, Diminished Cardiovascular: Regular rate, Regular Rhythm, Normal S1, Normal S2, PMI Normal Abdomen: Bowel Sounds Present, Soft, Non Tender, Non-Distended, No Hepato- splenomegaly Extremities: No clubbing, No cyanosis, No edema Skin: No rashes, No breakdown Lymphatic: No Cervical, Supraclavicular, or Inguinal Adenopathy Neurological: Cranial nerves II-XII grossly intact, Neuro grossly intact Psych/Mental Status: Normal Affect, Appropriate, Alert and oriented to time, place, person, mood and affect Microbiology Past 72 Hours 09/13/20 10:10 Mucosa - Nose SARS-CoV-2 Antigen (Rapid) - Final Laboratory Results 09/13/20 10:10: Sodium Cancelled, Potassium Cancelled, Chloride Cancelled, Carbon Dioxide Cancelled, Anion Gap Cancelled, BUN Cancelled, Creatinine Cancelled, Estim Creat Clear Calc Cancelled, Est GFR (MDRD) Af Amer Cancelled, Est GFR (MDRD) Non-Af Cancelled, BUN/Creatinine Ratio Cancelled, Glucose Cancelled, Calcium Cancelled, Total Bilirubin Cancelled, AST Cancelled, ALT Cancelled, Alkaline Phosphatase Cancelled, Troponin I Cancelled, Total Protein Cancelled, Albumin Cancelled, Globulin Cancelled, Albumin/Globulin Ratio Cancelled 09/13/20 10:10: WBC 7.6, RBC 4.86, Hgb 12.9, Hct 40.2, MCV 82.7, MCH 26.5 L, MCHC 32.1, RDW Std Deviation 41.0, RDW Coeff of Panda 13.7, Plt Count 355, MPV 8.7, Immature Gran % (Auto) 3.000 H, Neut % (Auto) 76.4 H, Lymph % (Auto) 12.3 L , [place] % (Auto) 8.1, Eos % (Auto) 0.1, Baso % (Auto) 0.1, Absolute Neuts (auto) 5.8, Absolute Lymphs (auto) 0.94, Nucleated RBC % 0 09/13/20 10:10: Lactic Acid Cancelled 09/13/20 10:10: B-Natriuretic Peptide 61.5 09/13/20 10:10: PT 12.9, INR 1.0 09/13/20 10:44: Lactic Acid 3.3 H* 09/13/20 11:16: Sodium 139, Potassium 3.1 L, Chloride 105, Carbon Dioxide 26.0, Anion Gap 8, BUN 18, Creatinine 0.88, Estim Creat Clear Calc 49.91, Est GFR (MDRD) Af Amer 82, Est GFR (MDRD) Non-Af 68, BUN/Creatinine Ratio 20.5 H, Glucose 116 H, Calcium 8.5, Total Bilirubin 0.30, AST 15, ALT 28, Alkaline Phosphatase 69, Troponin I 0.037, Total Protein 6.8, Albumin 2.6 L, Globulin 4.2, Albumin/Globulin Ratio 0.6 L 09/13/20 13:05: COVID-19 ([facility]) Positive 09/13/20 17:10: Lactic Acid 2.8 H* 09/13/20 17:29: POC Glucose 141 H 09/13/20 22:17: POC Glucose 157 H 09/14/20 06:00: WBC 8.1, RBC 4.47, Hgb 12.2, Hct 37.0, MCV 82.8, MCH 27.3, MCHC 33.0, RDW Std Deviation 41.3, RDW Coeff of Panda 13.8, Plt Count 297, MPV 8.6, Immature Gran % (Auto) 2.000 H, Neut % (Auto) 76.4 H, Lymph % (Auto) 13.7 L, [place] % (Auto) 7.5, Eos % (Auto) 0.2, Baso % (Auto) 0.2, Absolute Neuts (auto) 6.2, Absolute Lymphs (auto) 1.11, Nucleated RBC % 0 09/14/20 06:00: Sodium 140, Potassium 4.1, Chloride 107, Carbon Dioxide 25.0, Anion Gap 8, BUN 19 H, Creatinine 0.79, Estim Creat Clear Calc 43.92, Est GFR (MDRD) Af Amer 92, Est GFR (MDRD) Non-Af 76, BUN/Creatinine Ratio 23.9 H, Glucose 131 H, Calcium 8.5, Total Bilirubin 0.30, AST 15, ALT 29, Alkaline Phosphatase 64, Total Protein 6.5, Albumin 2.6 L, Globulin 3.9, Albumin/Globulin Ratio 0.7 L Current Medications Acetaminophen (Acetaminophen 325 Mg Tablet) 650 mg PO Q6H PRN PRN PRN Reason: Pain Score 1-10/Temp > 100.7 F Albuterol Sulfate (Albuterol Ih 8.5 Gm (Proair) Inhaler (200 Puffs)) 2 puff INHALATION Q4H PRN PRN PRN Reason: Shortness of breath, wheezing Amlodipine Besylate (Amlodipine 10 Mg Tablet) 10 mg PO DAILY [facility] Dexamethasone (Dexamethasone 4 Mg Tablet) 6 mg PO DAILY@0800 [facility] Last Admin: 09/14/20 08:41 Dose: 6 mg Documented by: Enoxaparin Sodium (Enoxaparin 30 Mg/0.3 Ml Syringe) 30 mg SC BID [facility] Last Admin: 09/14/20 08:42 Dose: 30 mg Documented by: Fluvoxamine Maleate (Fluvoxamine Maleate 50 Mg Tablet) 50 mg PO BID [facility] Last Admin: 09/14/20 08:42 Dose: 50 mg Documented by: Hydralazine HCl (Hydralazine 20 Mg/Ml Vial) 10 mg IV Q6H PRN PRN PRN Reason: for SBP>160 Last Admin: 09/13/20 17:34 Dose: 10 mg Documented by: Remdesivir 100 mg/ Sodium (Chloride) 250 mls @ 125 mls/hr IV DAILY [facility] Stop: 09/17/20 11:59 Sodium Chloride () 250 mls @ 15 mls/hr IV .[id number] PRN PRN Reason: Saline Flush Last Admin: 09/14/20 09:23 Dose: 15 mls/hr Documented by: Sodium Chloride () 250 mls @ 15 mls/hr IV .[id number] PRN PRN Reason: Additional IVPB Infusion Insulin Human Lispro (Insulin Lispro 100 Unit/Ml Insuln.Pen) 0 unit SC ACHS [facility]; Protocol Last Admin: 09/14/20 08:42 Dose: Not Given Documented by: Lisinopril (Lisinopril 20 Mg Tablet) 20 mg PO DAILY [facility] Last Admin: 09/14/20 08:42 Dose: 20 mg Documented by: Meloxicam (Meloxicam 15 Mg Tablet) 15 mg PO DAILY [facility] Last Admin: 09/14/20 08:41 Dose: 15 mg Documented by: Non-Formulary Medication (Budesonide/Glycopyr/Formoterol [Breztri Aerosphere Inhaler]) 2 inh INHALATION BID [facility] Last Admin: 09/14/20 08:42 Dose: 2 inh Documented by: Ondansetron HCl (Ondansetron 4 Mg/2 Ml Vial) 4 mg IV Q8H PRN PRN PRN Reason: NAUSEA/VOMITING Pantoprazole Sodium (Pantoprazole Sodium 40 Mg Tablet) 40 mg PO DAILY [facility] Last Admin: 09/14/20 08:42 Dose: 40 mg Documented by: Senna/Docusate Sodium (Senna/Docusate Sodium 1 Tablet) 2 tablet PO BID PRN PRN PRN Reason: Constipation Sodium Chloride (0.9% Saline Lock 10 Ml Syringe) 10 - 40 ml IV UD PRN PRN Reason: SALINE FLUSH Last Admin: 09/13/20 20:09 Dose: 10 ml Documented by: Zolpidem Tartrate (Zolpidem Tartrate 5 Mg Tablet) 5 mg PO QHS PRN PRN PRN Reason: INSOMNIA Medical Necessity - Tobacco Use Smoking Status: Former smoker Assessment/Plan All Active Problems (Last Updated 09/13/20 @ 15:[address] John Back MD) Pneumonia due to COVID-19 virus (Acute) Hypoxemia (Acute) This is a 70 years old female patient presented to the emergency room because of shortness of breath, weakness and elevated D-dimer, she was tested positive for COVID-19 on August 27, 2020, found to have bilateral groundglass opacities on CTA chest consistent with bilateral COVID-19 pneumonia with hypoxia and also found to have lactic acidosis. #1 acute bilateral COVID-19 pneumonia/hypoxia: She is on p.o. Decadron and IV remdesivir as well as subcu Lovenox twice daily. COVID-19 antigen was negative but COVID-19 PCR was positive. Currently, she is on room air, symptoms impro yovani, other vital signs are stable except blood pressure. Chest x-ray and CTA chest reviewed. EKG was unremarkable. Troponin and BNP was unremarkable. Infectious disease consulted. Plan to continue same treatment, awaiting infectious disease recommendations. #2 lactic acidosis: This is probably because of hypoxemia. No evidence of sepsis or severe sepsis. Patient was afebrile, not tachycardic, not tachypneic and she had no leukocytosis. Lactic acid improved with IV fluids. Blood cultures pending. #3 type 2 diabetes mellitus: Blood sugar stable, continue ADA diet, Accu-Cheks, insulin sliding scale, keep holding Metformin. #4 GERD: Continue PPI. #5 asthma/COPD: This morning, she is on room air. Continue Pulmicort twice daily, albuterol inhaler as needed, incentive spirometer. #6 CODE STATUS: Full code. #7 DVT prophylaxis: Subcu Lovenox twice daily. This note was generated with [employer] dictation software. It may contain incorrect words, spelling, and punctuation that were not noted in checking the note before signing. Inpatient E&M: 32076 Subs Hosp L2
[2020-09-14] MEDS: amLODIPine 10 MG Tablet PO (10:40)
[2020-09-14] MEDS: 0.9% Saline Lock 10 ML Syringe IV (10:40)
[2020-09-14 11:00] LABS: Bedside Glucose 113 mg/dL (70-110)
--- NOTE | 2020-09-14 11:55 | CASEMGMT ---
MILLER SPANN Assessment: TC to pt for initial transition planning/care coordination assessment due to isolation. RN MARIA INES introduced self and role at [facility], pt voices understanding and consents to assessment. Pt is A/O x4 and answers all questions appropriately at this time. Care providers, pharmacy, and demographics verified/updated. Admitting Dx: acute bilat COVID-19 pneumonia, hypoxia PCP: Cecilia Garza, [employer] Specialists: Dr. Grider, pulm; Dr. French, hand surgeon at [facility] Preferred Pharmacy: [facility] Pres[facility] Benefit: yes, [facility] [employer] Rx LW/HPOA: Pt reports having a LW and states her HPOA is her Indra. LNOK: Indra Living Arrangements: Pt lives in a single story house with 2 steps to enter. Has ramp in garage. Pt reports I in ADL's and states no concerns at home. Transportation: Pt drives self and no concerns with transportation. DME/HHC/SNF: Pt just received O2 on Thursday at home through [facility] in [place]. States she also has a CPAP at home. Pt denies need for further DME. Pt states she has had HHC previously when her knees were replaced but unsure of agency name. Denies being in a SNF. Pt states no concerns with going home at time of dc. Pt states no further concerns/needs. CM to follow. Advised pt to ask CM if any further question/concerns/needs arise, voices understanding. Pt Goal: Home Plan: Home with family support
--- NOTE | 2020-09-14 12:54 | PCM.HP.ID ---
Problem List (1) Pneumonia due to COVID-19 virus Status: Acute Reason for Consult: covid Consulted by: Dr. Back History of Present Illness: The patient is a 70 year old F presented with symptoms since 08/27/20. got sick at the same time. Neither had covid vaccine. No known sick contacts. Pt c/o fever, chills, fatigue, headache, loss of taste and smell, aches, nausea, loss of appetite. was admitted to [place] and got 5 days of remdesivir, now home. She reports fever resolved a week ago, complaint now is mainly fatigue, weakness. Admitted here 09/13, started on remdesivir and dex. Full ROS performed and neg except as noted above. - Medical History Past Medical History (Chronic Problems): Chronic Problems (Last Updated 09/13/20 @ 15:[address] John Back MD) Asthma (Chronic) DIABETES TYPE 2 (Chronic) IBS (irritable bowel syndrome) (Chronic) Sleep apnea (Chronic) Hypertension (Chronic) GERD (gastroesophageal reflux disease) (Chronic) Hyperlipemia (Chronic) Allergies/Adverse Reactions: Allergies gemfibrozil Allergy (Severe, Verified 09/13/20 09:29) vomiting and diarrhea amoxicillin Allergy (Verified 09/13/20 09:29) rash donepezil Adverse Reaction (Severe, Verified 09/13/20 09:29) dizzy Home Medications: Ambulatory Orders Medication Instructions Recorded albuterol sulfate 2.5 mg INHALATION Q4H PRN #90 ml 09/20/19 albuterol sulfate 90 mcg/actuation 2 puff INHALATION Q4H PRN #18 g 07/19/20 aerosol inhaler promethazine 12.5 mg tablet 12.5 mg PO Q4H PRN #45 tab 09/11/20 budesonide 160 mcg-glycopyr 9 2 inh INHALATION BID 09/12/20 mcg-formot 4.8 mcg/actuation HFA inhaler Ascorbic Acid [C-1000] 1,000 mg PO DAILY 09/13/20 Fluvoxamine Maleate 50 mg PO BID 09/13/20 Meloxicam 15 mg PO QDAY 09/13/20 Metformin HCl [Glucophage] 500 mg PO DAILY 09/13/20 Omeprazole 40 mg PO DAILY 09/13/20 Zinc Gluconate [Zinc] 50 mg PO DAILY 09/13/20 - Social History SMOKING STATUS:: Former smoker Vital Signs Temp Pulse Resp BP Pulse Ox 97.8 F 60 16 147/65 H 96 09/14/20 10:40 09/14/20 12:17 09/14/20 10:40 09/14/20 10:40 09/14/20 10:40 Oxygen Flow Rate (L/min) 2 Oxygen Delivery Method Room Air Weight: 86.8 kg Body Mass Index (BMI) 33.9 Microbiology Past 72 Hours 09/13/20 10:10 SARS-CoV-2 Antigen (Rapid) - Final Mucosa - Nose Laboratory Tests Past 24 Hrs 09/13/20 09/13/20 09/13/20 10:10 13:05 17:10 WBC RBC Hgb Hct MCV MCH MCHC RDW Std Deviation RDW Coeff of Panda Plt Count MPV Immature Gran % (Auto) Neut % (Auto) Lymph % (Auto) [place] % (Auto) Eos % (Auto) Baso % (Auto) Absolute Neuts (auto) Absolute Lymphs (auto) Nucleated RBC % PT 12.9 INR 1.0 Sodium Potassium Chloride Carbon Dioxide Anion Gap BUN Creatinine Estim Creat Clear Calc Est GFR (MDRD) Af Amer Est GFR (MDRD) Non-Af BUN/Creatinine Ratio Glucose Lactic Acid 2.8 H* Calcium Total Bilirubin AST ALT Alkaline Phosphatase Total Protein Albumin Globulin Albumin/Globulin Ratio COVID-19 ([facility]) Positive 09/14/20 09/14/20 06:00 06:00 WBC 8.1 RBC 4.47 Hgb 12.2 Hct 37.0 MCV 82.8 MCH 27.3 MCHC 33.0 RDW Std Deviation 41.3 RDW Coeff of Panda 13.8 Plt Count 297 MPV 8.6 Immature Gran % (Auto) 2.000 H Neut % (Auto) 76.4 H Lymph % (Auto) 13.7 L [place] % (Auto) 7.5 Eos % (Auto) 0.2 Baso % (Auto) 0.2 Absolute Neuts (auto) 6.2 Absolute Lymphs (auto) 1.11 Nucleated RBC % 0 PT INR Sodium 140 Potassium 4.1 Chloride 107 Carbon Dioxide 25.0 Anion Gap 8 BUN 19 H Creatinine 0.79 Estim Creat Clear Calc 43.92 Est GFR (MDRD) Af Amer 92 Est GFR (MDRD) Non-Af 76 BUN/Creatinine Ratio 23.9 H Glucose 131 H Lactic Acid Calcium 8.5 Total Bilirubin 0.30 AST 15 ALT 29 Alkaline Phosphatase 64 Total Protein 6.5 Albumin 2.6 L Globulin 3.9 Albumin/Globulin Ratio 0.7 L COVID-19 ([facility]) - Other Studies Radiology: [] reviewed Other Studies: [] Route of nutrition/ use of supplements: [] Nutritional Intake: [] IV Site: [] Sweeney Catheter: [] - Physical Exam General: Alert, Oriented x3, Cooperative, No apparent distress HEENT: Atraumatic, PERRLA, EOMI Neck: Supple, No Nodes Lungs: Clear to auscultation, Normal air movement Cardiovascular: Regular rate, Regular Rhythm Abdomen: Soft, Non Tender, Non-Distended Extremities: No edema Skin: No rashes IV Site: Peripheral, without redness Musculoskeletal: No Tenderness to Palpation of Joints or Extremities Neurological: Cranial nerves II-XII grossly intact - Assessment/Plan Antibiotics: [] Assessment/Plan: [] Active and Suspected Problems (Last Updated 09/13/20 @ 15:[address] John Back MD) Pneumonia due to COVID-19 virus (Acute) Hypoxemia (Acute) Sx started 08/27/20 along with . Day 19 of symptoms today. No role for remdesivir at this point. Sats down to 94% on RA, so ok for 10 day course of dex. Ok to d/c isolation tomorrow. Ok for covid vaccine starting any time next week. Will follow as needed, thank you, d/w nursing.
[2020-09-15] VITALS (7 sets, daily range): BP systolic 145–169; BP diastolic 45–76; PULSE 55–94; RESP 15–23; TEMP 36.7–36.9; O2SAT 94–98
[2020-09-15 05:41] LABS: Bedside Glucose 155 mg/dL (70-110)
[2020-09-15] MEDS: dexAMETHasone 4 MG Tablet 6 MG PO (08:40)
[2020-09-15] MEDS: amLODIPine 10 MG Tablet PO (08:40)
[2020-09-15] MEDS: Pantoprazole Sodium 40 MG Tablet PO (08:40)
[2020-09-15] MEDS: Lisinopril 20 MG Tablet PO (08:40)
[2020-09-15] MEDS: Enoxaparin 30 MG/0.3 ML Syringe SC (08:40)
[2020-09-15] MEDS: fluvoxaMINE Maleate 50 MG Tablet PO (08:40)
[2020-09-15] MEDS: Meloxicam 15 MG Tablet PO (08:41)
--- NOTE | 2020-09-15 09:22 | DCINST_ITS ---
- Discharge Diagnoses Current Active Problems: Current Active and Chronic Problems (Last Updated 09/13/20 @ 15:[address] John Back MD) Pneumonia due to COVID-19 virus (Acute) Hypoxemia (Acute) DIABETES TYPE 2 (Chronic) IBS (irritable bowel syndrome) (Chronic) Hypertension (Chronic) GERD (gastroesophageal reflux disease) (Chronic) Hyperlipemia (Chronic) You will use the following diet at home:: Cardiac Your food should be the consistency of: Regular Discharge Activity: Return to Normal Activity Weight Bearing Status: Weight bearing as tolerated Call your doctor if you observe: Fever of 101 or Higher, Shortness of breath, Dizziness, Fainting spells, Chest pain, Increased palpitations (irregular heartbeat), Uncontrolled pain Instructions: Controlling High Blood Pressure, Taking Your Blood Pressure Additional Instructions: You completed the COVID-19 quarantine requirement for 20 days. You should still keep using facemask all the time and wash your hands frequently. Allergies/Adverse Reactions: Allergies gemfibrozil Allergy (Severe, Verified 09/13/20 09:29) vomiting and diarrhea amoxicillin Allergy (Verified 09/13/20 09:29) rash donepezil Adverse Reaction (Severe, Verified 09/13/20 09:29) dizzy Medications to take at Discharge albuterol sulfate 2.5 mg INHALATION Q4H PRN #90 ml 09/20/19 albuterol sulfate 90 mcg/actuation aerosol inhaler 2 puff INHALATION Q4H PRN #18 g 07/19/20 promethazine 12.5 mg tablet 12.5 mg PO Q4H PRN #45 tab 09/11/20 budesonide 160 mcg-glycopyr 9 mcg-formot 4.8 mcg/actuation HFA inhaler 2 inh INHALATION BID 09/12/20 Ascorbic Acid [C-1000] 1,000 mg PO DAILY 09/13/20 Fluvoxamine Maleate 50 mg PO BID 09/13/20 Meloxicam 15 mg PO QDAY 09/13/20 Metformin HCl [Glucophage] 500 mg PO DAILY 09/13/20 Omeprazole 40 mg PO DAILY 09/13/20 Zinc Gluconate [Zinc] 50 mg PO DAILY 09/13/20 Amlodipine [Norvasc] 10 mg PO DAILY #30 tablet 09/15/20 Dexamethasone [Decadron] 6 mg PO DAILY #7 tablet 09/15/20 Lisinopril [Zestril] 20 mg PO DAILY #30 tablet 09/15/20 The following prescriptions were given: Dexamethasone [Decadron] 6 mg PO DAILY #7 tablet Transmission Status: Pending to [facility] Amlodipine [Norvasc] 10 mg PO DAILY #30 tablet Transmission Status: Pending to [facility] Lisinopril [Zestril] 20 mg PO DAILY #30 tablet Transmission Status: Pending to [facility] Primary Care Physician: Cecilia Garza NP, [employer] [Primary Care Provider] - Please follow up with your Primary Care Physician in: 1 week. Test Results: Test results from this visit will be discussed in further detail at your follow- up appointment, if applicable.
--- NOTE | 2020-09-15 11:18 | DS.PCM_ITS ---
Discharge Date and Diagnosis - Problem List Patient Problems: Active and Suspected Problems (Last Updated 09/13/20 @ 15:[address] John Back MD) Pneumonia due to COVID-19 virus (Acute) Hypoxemia (Acute) Date of Admission: 09/13/20 Date of Discharge: 09/15/20 - Primary Discharge Diagnosis Acute Problems: Active Problems (Last Updated 09/13/20 @ 15:[address] John Back MD) #1 acute bilateral COVID-19 pneumonia. #2 hypoxia, resolved. #3 newly diagnosed hypertension. - Secondary Discharge Diagnosis Chronic Problems: Chronic Problems (Last Updated 09/13/20 @ 15:[address] John Back MD) Asthma (Chronic) DIABETES TYPE 2 (Chronic) IBS (irritable bowel syndrome) (Chronic) Sleep apnea (Chronic) Hypertension (Chronic) GERD (gastroesophageal reflux disease) (Chronic) Hyperlipemia (Chronic) Hospital Course and Treatment Imaging Results: Clinical Impression(s) from Imaging Studies Chest CTA 09/13/20 09:53 IMPRESSION: Multiple areas of groundglass appearance in both lungs superimposed on chronic basilar scarring. Findings are suggestive of pneumonitis associated with Covid19. Electronically Signed: Sanjeev Moran MD at 12:15 EDT , Service support , Chest X-Ray 09/13/20 10:55 IMPRESSION: Mild degree of CHF with bibasilar atelectasis and/or infiltrates. Electronically Signed: Sanjeev Moran MD at 11:19 EDT , Service support , Dr. Gutiérrez, infectious disease. Operations: None Procedures: None Summary of Care Provided: Patient seen and examined on the day of discharge and appeared to be stable to be discharged home. She remained stable, remained on room air, afebrile. No significant shortness of breath upon ambulation. Blood pressure improved. The patient is a 70 year old F presented to the emergency room because of shortness of breath, weakness and elevated D-dimer, tested positive for COVID-19 on August 27, 2020 and she was found to have bilateral groundglass opacities on CTA chest consistent with acute bilateral COVID-19 pneumonia with hypoxia. CTA chest showed no PE or dissection. Initially, patient was admitted to [facility] COVID-19 floor, started on IV remdesivir and p.o. Decadron as well as subcu Lovenox twice daily. Lactic acid was elevated on admission but came down with IV fluids. There was no evidence of sepsis or severe sepsis. Routine blood work was remarkable for potassium of 3.1 which was replaced and corrected, otherwise normal. Troponin and BNP was normal. EKG revealed no acute ischemic changes. COVID-19 PCR was positive. Infectious disease consulted and recommended to start IV in the severe as it has noted at this time. During this hospital stay, patient's blood pressure was very high, systolic was up to 219. She was started on Norvasc and lisinopril as well as IV allergy as needed. With above-mentioned treatment, patient symptoms improved and she was able to come off oxygen. She remained afebrile and she remained on room air. Her blood pressure improved with medications. Blood culture showed no growth in 48 hours. Patient discharged home in a stable condition, discharged on Decadron 6 mg p.o. daily for 7 days to complete total of 10 days of treatment, discharged on Norvasc 10 mg p.o. daily, lisinopril 20 mg p.o. daily, continued on her previous home medications, instructed to monitor blood pressure at least twice daily over the next week, recommended follow-up with PCP in 1 week. Patient completed COVID-19 quarantine requirement as of today September 15, 2020, recommended to use facemask at all times and to wash hands frequently. Patient Problems: Active and Suspected Problems (Last Updated 09/13/20 @ 15:[address] John Back MD) Pneumonia due to COVID-19 virus (Acute) Hypoxemia (Acute) - Physical Exam Vitals/I&O's: Vital Signs Temp Pulse Resp BP Pulse Ox 98.4 F 93 23 H 145/45 H 94 09/15/20 08:00 09/15/20 10:46 09/15/20 10:46 09/15/20 10:46 09/15/20 10:46 Oxygen Flow Rate (L/min) 2 Oxygen Delivery Method Room Air Weight: 191 lb 5.78 oz Body Mass Index (BMI) 33.9 Intake and Output for Last 24 Hours 09/13/20 09/14/20 09/15/20 23:59 23:59 23:59 Intake Total 1750 / 1750 778.75 / 778.75 Balance 1750 / 1750 778.75 / 778.75 General: Alert, Oriented x3, Cooperative, No apparent distress HEENT: Atraumatic, PERRLA, EOMI, Normocephalic Oral: Moist Mucosa, No Gingival or Mucosal Lesions/ Ulcerations Neck: Supple, No JVD, Negative Carotid Bruits, Trachea Midline, Thyroid Normal Size and Texture Lungs: Clear to auscultation, No rhonchi, No wheeze, No rales, Diminished Cardiovascular: Regular rate, Regular Rhythm, Normal S1, Normal S2, PMI Normal Abdomen: Bowel Sounds Present, Soft, Non Tender, Non-Distended, No Hepato- splenomegaly Extremities: No clubbing, No cyanosis, No edema Skin: No rashes, No breakdown Lymphatic: No Cervical, Supraclavicular, or Inguinal Adenopathy Neurological: Cranial nerves II-XII grossly intact, Neuro grossly intact Psych/Mental Status: Normal Affect, Appropriate Microbiology Past 72 Hours 09/13/20 10:44 Blood Culture (Wb) - Left Hand Blood Culture - Preliminary No growth in 48 hours. 09/13/20 10:10 Blood Culture (Wb) - Anticubital Left Blood Culture - Preliminary No growth in 48 hours. 09/13/20 10:10 Mucosa - Nose SARS-CoV-2 Antigen (Rapid) - Final Laboratory Results 09/14/20 12:40: POC Glucose 155 H Discharge Activity: Return to Normal Activity Weight Bearing Status: Weight bearing as tolerated Call your doctor if you observe: Fever of 101 or Higher, Shortness of breath, Dizziness, Fainting spells, Chest pain, Increased palpitations (irregular heartbeat), Uncontrolled pain Home Medications: Medications to take at Discharge albuterol sulfate 2.5 mg INHALATION Q4H PRN #90 ml 09/20/19 albuterol sulfate 90 mcg/actuation aerosol inhaler 2 puff INHALATION Q4H PRN #18 g 07/19/20 promethazine 12.5 mg tablet 12.5 mg PO Q4H PRN #45 tab 09/11/20 budesonide 160 mcg-glycopyr 9 mcg-formot 4.8 mcg/actuation HFA inhaler 2 inh INHALATION BID 09/12/20 Ascorbic Acid [C-1000] 1,000 mg PO DAILY 09/13/20 Fluvoxamine Maleate 50 mg PO BID 09/13/20 Meloxicam 15 mg PO QDAY 09/13/20 Metformin HCl [Glucophage] 500 mg PO DAILY 09/13/20 Omeprazole 40 mg PO DAILY 09/13/20 Zinc Gluconate [Zinc] 50 mg PO DAILY 09/13/20 Amlodipine [Norvasc] 10 mg PO DAILY #30 tablet 09/15/20 Dexamethasone [Decadron] 6 mg PO DAILY #7 tablet 09/15/20 Lisinopril [Zestril] 20 mg PO DAILY #30 tablet 09/15/20 Following Prescriptions Were Given to Patient: Dexamethasone [Decadron] 6 mg PO DAILY #7 tablet Transmission Status: Received by [facility] Amlodipine [Norvasc] 10 mg PO DAILY #30 tablet Transmission Status: Received by [facility] Lisinopril [Zestril] 20 mg PO DAILY #30 tablet Transmission Status: Received by [facility] Primary Care Physician: Cecilia Garza NP, LEARNING AND DEVELOPMENT ANALYST-C [Primary Care Provider] - Please follow up with your Primary Care Physician in: 1 week. Patient Instructions: Controlling High Blood Pressure, Taking Your Blood Pressure Disposition: Home Minutes spent on discharge:: 32 Patient Condition:: Stable Medical Necessity - Tobacco Use Smoking Status: Former smoker Meaningful Use Info Meaningful Use Diagnoses (Choose all that apply): None applicable Inpatient E&M: 04998 Disch Hosp
--- NOTE | 2020-09-17 14:23 | CASEMGMT ---
MILLER SPANN Discharge Follow-up Phone Call: RIZWANA: Benjamin Strata: 3 Call Date: 09/17/20 Discharge Date: 09/15/20 Time of Call: 1422 Duration: 3 min Admitting Diagnosis: covid MILLER SPANN completed follow-up phone call after recent hospitalization. Patient states she is doing well and has had no issues with her breathing. Patient states she had no questions or concerns regarding discharge instructions. Patient was able to fill prescriptions without any issues. Patient had follow-up with systems integration engineer and will schedule appt with PCP. Patient had no further questions or concerns at this time.
== END 2020-09-15 10:45 | disposition home or self-care (01) | DRG 177 ==
LOC: ED 14:50 → ICU 15:30
PROVIDERS: Admitting Provider Hospitalist; Emergency Provider Emergency Medicine; PCP Nurse Practitioner; Visit Provider Hospitalist
DX: U07.1 COVID-19 (principal); J12.82 Pneumonia due to coronavirus disease 2019; J44.0 Chronic obstructive pulmonary disease with (acute) lower respiratory infection; R09.02 Hypoxemia; E87.6 Hypokalemia; E11.9 Type 2 diabetes mellitus without complications; E78.5 Hyperlipidemia, unspecified; I10 Essential (primary) hypertension; K21.9 Gastro-esophageal reflux disease without esophagitis; K58.9 Irritable bowel syndrome, unspecified; G47.30 Sleep apnea, unspecified; Z79.84 Long term (current) use of oral hypoglycemic drugs; Z79.899 Other long term (current) drug therapy; Z87.891 Personal history of nicotine dependence
CPT/HCPCS: 71045; 71275; 80053; 82962; 83605; 83880; 84484; 85025; 85379; 85610; 86141; 87040; 87426; 87635; 93005; 97162; 99251; 99285; J7030; J7050; Q9967; A4216; G0463; U0002

== ENCOUNTER → 2020-10-10 | Outpatient (CLI) | payer MEDICARE, OTHER, SELFPAY ==
[2020-10-10 15:29] VITALS: BMI 34.0
[2020-10-10 21:38] LABS: Absolute Lymphocyte Count 1.64 X10^3/uL (0.83-4.51); Absolute Neutrophil Count 3.7 X10^3/uL (2.0-7.7); Basophil# 0.03 X10^3/uL; Basophil% 0.5 % (0-1); Eosinophil# 0.25 X10^3/uL; Eosinophils% 3.9 % (0-5); Hematocrit 35.9 % (37-47); Hemoglobin 11.3 g/dL (12.0-15.0); Lymphocyte # 1.64 X10^3/ul (0.83-4.51); Lymphocyte % 25.6 % (19-41); Mean Corp Hgb Conc 31.5 g/dL (32-36); Mean Corpuscular Hgb 27.1 pg (27.0-32.0); Mean Corpuscular Volume 86.1 fL (81-99); Mean Platelet Vol. 9.5 fl (6.2-12.0); Monocyte# 0.69 X10^3/uL; Monocyte% 10.8 % (0-10); NRBC Flagged by Analyzer 0 % (0-5); Neutrophil # 3.73 X10^3/uL (2.7-7.7); Neutrophil % 58.3 % (47-70); Platelet Count 275 K/mm3 (150-450); RBC Distribution Width CV 15.5 % (11.6-14.6); RBC Distribution Width SD 48.3 fl (35.1-43.9); Red Blood Count 4.17 M/mm3 (4.2-5.4); White Blood Count 6.4 K/mm3 (4.4-11.0)
[2020-10-10 22:01] LABS: Hemoglobin A1c 6.8 % (3.8-5.6)
[2020-10-10 22:06] LABS: ALB/GLOB Ratio 0.9 RATIO (0.9-2.4); AST(SGOT) 17 U/L (15-37); Alanine Aminotransfer ALT/SGPT 33 U/L (13-56); Albumin, Serum 3.5 g/dL (3.2-5.0); Alkaline Phosphatase 82 U/L (45-117); Anion Gap 8 (5-15); BUN 17 mg/dL (7-18); BUN/Creat Ratio 16.3 RATIO (10-20); Calcium,Total 9.3 mg/dL (8.5-10.1); Chloride 108 mmol/L (98-107); Cholesterol 319 mg/dL (200); Creatinine, Serum 1.04 mg/dL (0.55-1.02); EST Glomerular Filtration Rate 56 mL/min (>60); Est Glom Filt Rate - Afr Amer 68 mL/min (>60); Globulin 3.7 g/dL (2.2-4.2); Glucose 133 mg/dL (74-106); High Density Lipoprotein 46 mg/dL; Magnesium 1.4 mg/dL (1.6-2.6); Potassium 3.7 mmol/L (3.5-5.1); Protein, Total 7.2 g/dL (6.4-8.2); Sodium Level 141 mmol/L (136-145); Triglycerides 428 mg/dL
[2020-10-12 15:50] LABS: Vitamin D 1,25-Dihydroxy 60.9 pg/mL (19.9-79.3)
== END | disposition home or self-care (01) ==
PROVIDERS: PCP Nurse Practitioner; Referring Provider Nurse Practitioner; Visit Provider Nurse Practitioner
DX: E11.9 Type 2 diabetes mellitus without complications (principal); I10 Essential (primary) hypertension; J96.01 Acute respiratory failure with hypoxia; U07.1 COVID-19; E55.9 Vitamin D deficiency, unspecified
CPT/HCPCS: 80053; 80061; 82652; 83036; 83735; 85025; 86141

== ENCOUNTER → 2020-11-06 08:07 | Outpatient (CLI) | payer MEDICARE, OTHER, SELFPAY ==
[2020-09-17 10:54] VITALS: BMI 32.2
[2020-10-10 15:29] VITALS: BMI 34.0
[2020-11-06 08:15] VITALS: PULSE 104; PULSE 105; PULSE 109; PULSE 71; PULSE 83; PULSE 93; O2SAT 94; O2SAT 96; O2SAT 98; O2SAT 99
--- NOTE | 2020-11-06 14:43 | PCM.PSN.6M ---
PSN 6 Minute Walk Test 6 Minute Walk Test 6 Minute Walk Test: 6 Minute Walk Test PSN:6-Minute Walk Test Start: 11/06/20 08:34 Freq: Status: Active Protocol: [id number] Document 11/06/20 08:15 [facility] (Rec: 11/06/20 08:38 [facility] [id number]) 6 Minute Walk Test Date Performed 11/06/20 Time Performed 08:15 Height 5 ft 3 in Weight: 86.183 kg Weight in Pounds 190.[address]: Dr Grider Assistive device used: None Pre-test Oxygen Delivery Method Room Air Pulse Ox (%) 98 Pulse Rate (60-100 beats/min) 71 Dyspnea Pirscila Scale (0-10) 0 Exertion Priscila Scale (6-20) 6 1st minute Oxygen Delivery Method Room Air Pulse Ox (%) 98 Pulse Rate (60-100 beats/min) 83 2nd minute Oxygen Delivery Method Room Air Pulse Ox (%) 94 Pulse Rate (60-100 beats/min) 93 3rd minute Oxygen Delivery Method Room Air Pulse Ox (%) 96 Pulse Rate (60-100 beats/min) 104 H 4th minute Oxygen Delivery Method Room Air Pulse Ox (%) 98 Pulse Rate (60-100 beats/min) 109 H 5th minute Oxygen Delivery Method Room Air Pulse Ox (%) 99 Pulse Rate (60-100 beats/min) 104 H 6th minute Oxygen Delivery Method Room Air Pulse Ox (%) 99 Pulse Rate (60-100 beats/min) 105 H Dyspnea Priscila Scale (0-10) 0.5 Exertion Priscila Scale (6-20) 11 Post-test Oxygen Delivery Method Room Air Pulse Ox (%) 98 Pulse Rate (60-100 beats/min) 83 Full Laps Walked 20 Partial Lap, Number of Tiles Walked 10 Total Distance Walked (ft) 1190 Interpretation Interpretation: The patient was able to ambulate 1190 feet over the course of 6 minutes on room air with no assistive device or breaks. The patient did experience tachycardia as high as 109 bpm. These findings are consistent with deconditioning. Recommendations Recommendations: No supplemental oxygen is indicated at this time.
== END ==
PROVIDERS: PCP Nurse Practitioner; Referring Provider Internal Medicine Critical Care Medicine; Visit Provider Internal Medicine Critical Care Medicine
DX: U07.1 COVID-19 (principal); J12.82 Pneumonia due to coronavirus disease 2019
CPT/HCPCS: 94618

== ENCOUNTER → 2021-01-09 | Outpatient (CLI) | payer MEDICARE, OTHER, SELFPAY ==
[2021-01-09 14:54] VITALS: BMI 36.2
[2021-01-09 23:27] LABS: Absolute Lymphocyte Count 2.19 X10^3/uL (0.83-4.51); Absolute Neutrophil Count 6.1 X10^3/uL (2.0-7.7); Basophil# 0.04 X10^3/uL; Basophil% 0.4 % (0-1); Eosinophil# 0.24 X10^3/uL; Eosinophils% 2.6 % (0-5); Hematocrit 36.7 % (37-47); Hemoglobin 11.5 g/dL (12.0-15.0); Lymphocyte # 2.19 X10^3/ul (0.83-4.51); Lymphocyte % 23.5 % (19-41); Mean Corp Hgb Conc 31.3 g/dL (32-36); Mean Corpuscular Hgb 27.8 pg (27.0-32.0); Mean Corpuscular Volume 88.9 fL (81-99); Mean Platelet Vol. 9.8 fl (6.2-12.0); Monocyte# 0.69 X10^3/uL; Monocyte% 7.4 % (0-10); NRBC Flagged by Analyzer 0 % (0-5); Neutrophil # 6.11 X10^3/uL (2.7-7.7); Neutrophil % 65.6 % (47-70); Platelet Count 236 K/mm3 (150-450); RBC Distribution Width CV 13.2 % (11.6-14.6); RBC Distribution Width SD 42.8 fl (35.1-43.9); Red Blood Count 4.13 M/mm3 (4.2-5.4); White Blood Count 9.3 K/mm3 (4.4-11.0)
[2021-01-10 00:03] LABS: ALB/GLOB Ratio 1.2 RATIO (0.9-2.4); AST(SGOT) 26 U/L (15-37); Alanine Aminotransfer ALT/SGPT 38 U/L (13-56); Albumin, Serum 3.7 g/dL (3.2-5.0); Alkaline Phosphatase 78 U/L (45-117); Anion Gap 8 (5-15); BUN 17 mg/dL (7-18); BUN/Creat Ratio 15.5 RATIO (10-20); CRP, High Sensitivity Cardiac 1.85 mg/L; Calcium,Total 8.6 mg/dL (8.5-10.1); Chloride 108 mmol/L (98-107); Cholesterol 204 mg/dL (200); EST Glomerular Filtration Rate 52 mL/min (>60); Est Glom Filt Rate - Afr Amer 63 mL/min (>60); Glucose 126 mg/dL (74-106); High Density Lipoprotein 42 mg/dL; Potassium 3.5 mmol/L (3.5-5.1); Protein, Total 6.7 g/dL (6.4-8.2); Sodium Level 141 mmol/L (136-145); Thyroid Stim Hormone (TSH) 1.56 uIU/mL (0.358-3.74); Triglycerides 391 mg/dL; Very Low Density Lipoprotein 78 mg/dL (5-40)
[2021-01-10 23:52] LABS: Hemoglobin A1c 5.7 % (3.8-5.6)
== END | disposition home or self-care (01) ==
PROVIDERS: PCP Nurse Practitioner; Referring Provider Nurse Practitioner; Visit Provider Nurse Practitioner
DX: I10 Essential (primary) hypertension (principal); E83.42 Hypomagnesemia; E78.1 Pure hyperglyceridemia; L65.9 Nonscarring hair loss, unspecified; E11.8 Type 2 diabetes mellitus with unspecified complications
CPT/HCPCS: 80053; 80061; 83036; 83735; 84443; 85025; 86141